=== PATIENT | female | born 1960 | race Caucasian/White ===

== ENCOUNTER → 2020-12-18 14:27 | Outpatient (BNVA) | payer OTHER, SELFPAY | PROVIDERS: Family Provider Nurse Practitioner; PCP Nurse Practitioner; Referring Provider Nurse Practitioner; Visit Provider Nurse Practitioner Family | DX: N39.46 Mixed incontinence (principal) | CPT/HCPCS: 81003 ==

== ENCOUNTER 2021-05-03 07:52 | Outpatient (CLI) | payer OTHER, SELFPAY ==
--- NOTE | 2021-05-03 08:04 | MM_ITS ---
WS: [id number] BILATERAL SCREENING DIGITAL MAMMOGRAM WITH CAD HISTORY: SCREENING COMPARISON: 11/20/2018 and 05/03/2016 Bilateral CC and MLO views submitted. Computer aided detection analyzed. Breast composition: There are scattered areas of fibroglandular density. No suspicious masses, microc alcifications or architectural distortion. Long-term stability of a nodule in the central mid RIGHT b reast. There is an additional postbiopsy clip in the upper outer quadrant of the LEFT breast which guerrero s been present for multiple prior years. No adjacent calcification or mass. MM/[place] [id number] IMPRESSION: BI-RADS: 2-Benign FOLLOW UP: 1 Year Follow-up
== END 2021-05-03 07:53 | disposition home or self-care (01) ==
LOC: RADSHAW 07:57
PROVIDERS: PCP Nurse Practitioner; Visit Provider Nurse Practitioner
DX: Z12.31 Encounter for screening mammogram for malignant neoplasm of breast (principal)
CPT/HCPCS: 77067

== ENCOUNTER 2021-09-28 09:07 | Emergency (ER) | payer OTHER, SELFPAY ==
[2021-09-28 09:13] VITALS: BP 144/83; PULSE 74; RESP 14; TEMP 36.5; BMI 32.5
--- NOTE | 2021-09-28 09:20 | ED_ITS ---
HPI - Dizziness General: Chief Complaint: Dizziness Stated Complaint: Dizzy Time Seen by Provider: 09/28/21 09:14 History of Present Illness: HPI Narrative: Ms. Bobby is a 61-year-old lady with history of hypertension and asthma who presents to the emergency department due to concern of her episodic fogginess. She reports onset of symptoms without known specific provoking factor approximately 2 weeks ago. Since that time she has had a number of episodes which do not occur daily. She describes sudden onset without specific known provoking factors including position change or other known factors of a foggy feeling in her head. At times she describes this as dizziness or spinning sensation though other times more of a presyncopal. She denies associated headache or other focal neurologic difficulties with these. [facility]. Episodes typically last 20 minutes or so. When present intensity symptoms is moderate. No other specific changes in health, exacerbating, or alleviating factors identified. Onset (ago): week(s) Timing: intermittent Severity: moderate Description: other History of similar symptoms: No Associated symptoms: Reports no associated symptoms Associated neuro symptoms: Reports no associated symptoms Review of Systems General: Reports: 10 or more systems reviewed and unremarkable except in HPI and below PFSH ED PFSH: Medical History Mixed stress and urge urinary incontinence Surgical History History of delivery Family History Father , AT 55 Cancer COLOC Mother Heart disease Social History Smoking and tobacco status: never smoked Alcohol intake: never Marital status: / Current occupational status: employed History of recent travel: No Physical Exam Const: COMMON NORMALS: patient oriented x3 and alert GENERAL APPEARANCE: cooperative and well developed HENMT: COMMON NORMALS: normocephalic, atraumatic, moist oral mucous membranes and oropharynx normal HEAD & SCALP: normocephalic and atraumatic Eye: COMMON NORMALS: conjunctivae normal CONJUNCTIVA: Yes conjunctivae normal SCLERA: sclerae normal Neck/C-Spine: COMMON NORMALS: supple GENERAL: Yes trachea midline Resp: COMMON NORMALS: normal respiratory effort and clear to auscultation bilaterally EFFORT & INSPECTION: Yes able to speak in complete sentences AUSCULTATION: clear to auscultation bilaterally Cardio: COMMON NORMALS: regular rate and regular rhythm RATE: regular rate RHYTHM: regular rhythm GI: COMMON NORMALS: Soft to palpation PALPATION: Yes Soft to palpation and No Tenderness to palpation present (GI) PERCUSSION: normal to percussion Extremity: GENERAL: Yes normal exam except as noted and No edema Neuro: COMMON NORMALS: patient oriented x3, CN's II-XII intact bilaterally, moves all extremities, no focal motor deficits, no sensory deficits noted and gait normal SENSORIUM/ORIENTATION: Yes alert and No Orientation impaired Psych: COMMON NORMALS: mental status grossly normal and Normal thought process present THOUGHT PROCESS: Normal thought process present Course ED course: - Patient was seen and evaluated by me at bedside - Patient placed on cardiac monitors, IV access obtained - Initial evaluation notable for exam as above. No neurologic deficits or elicitable neurologic deficits appreciated. - Labs personally interpreted by me. EKG showing sinus rhythm with nonspecific ST segment abnormalities, no STEMI. - Labs notable for no significant hematologic or metabolic abnormalities to explain patient's symptoms. Initial and delta troponin negative. No evidence of urinary tract infection. - Imaging notable for negative head CT. CTA without significant disease. - Upon serial reexamination after treatment the patient was similar without recurrence of episodes - Based on patient history, evaluation, and testing as interpreted the most likely cause of the patient's condition is unclear episodic lightheadedness/dizziness. - The results of ED evaluation were discussed with the patient including prescriptions and/or symptomatic cares (if applicable) including appropriate and responsible use, followup plan, and return precautions. The patient verbalized understanding and felt safe for discharge. - Patient discharged in satisfactory condition. Note: Click bubbles or prepopulated bowman in note writing are used for assistance with data collection and billing and are inherently more limited than narrative and other text portions of this note. Please use narrative for additional cli nical history and defer to narrative/free test for any case of contradictory information. If information appears in only free text or click bubble it should be considered present or absent as reported. Please contact note insurance writer for clarifications of clinical information or contradictory information. MDM is a brief summary, contradictory or erroneous seeming information should be clarified and full note should be reviewed. Vital Signs: Vital signs: Vital Signs Temperature 97.7 F 09/28/21 09:13 Pulse Rate 70 09/28/21 12:35 Respiratory Rate 18 09/28/21 12:35 Blood Pressure 144/83 09/28/21 09:13 MDM - Dizziness Medical Decision Making 61-year-old lady with episodic lightheadedness presenting to the emergency department. Negative ED evaluation. Satisfactory for outpatient management. Medical Records I reviewed the patient's medical records. Lab Data I reviewed the patient's lab results. : 09/28/21 10:00 09/28/21 10:[address] 09/28/21 09:34 IMPRESSION: No acute intracranial abnormality. Head/Neck CTA 09/28/21 10:52 IMPRESSION: No large vessel stenosis or occlusion. IMPRESSION: No stenosis or occlusion. REFERENCES: NASCET CRITERIA. The degree of internal carotid artery stenosis is based on NASCET criteria. Normal is no stenosis. Mild is less than 50% stenosis. Moderate is 50-69% stenosis. Severe is 70% to 99% stenosis. Total occlusion is no detectable patent lumen. Laboratory Results WBC 8.0 10^3/uL (4.0-10.0) 09/28/21 10:00 RBC 4.23 10^6/uL (4.1-5.3) 09/28/21 10:00 Hgb 13.4 g/dL (11.5-15.3) 09/28/21 10:00 Hct 39.9 % (37.0-47.0) 09/28/21 10:00 MCV 94.3 fl (81-99) 09/28/21 10:00 MCH 31.7 pg (28.0-34.0) 09/28/21 10:00 MCHC 33.6 g/dL (30.0-36.0) 09/28/21 10:00 RDW 11.6 % (12.1-15.1) L 09/28/21 10:00 Plt Count 318 10^3/cmm (130-400) 09/28/21 10:00 MPV 9.4 fL (7.4-10.4) 09/28/21 10:00 Neut % (Auto) 52.7 % 09/28/21 10:00 Lymph % (Auto) 38.7 % 09/28/21 10:00 [place] % (Auto) 6.5 % 09/28/21 10:00 Eos % (Auto) 1.3 % 09/28/21 10:00 Baso % (Auto) 0.5 % 09/28/21 10:00 Neut # (Auto) 4.19 10^3/uL (1.8-7.7) 09/28/21 10:00 Lymph # (Auto) 3.1 10^3/uL (0.8-4.8) 09/28/21 10:00 [place] # (Auto) 0.5 10^3/uL (0.2-0.9) 09/28/21 10:00 Eos # (Auto) 0.1 10^3/uL (0.0-0.8) 09/28/21 10:00 Baso # (Auto) 0.0 10^3/uL (0.0-0.1) 09/28/21 10:00 Nucleated RBC % (auto) 0 % 09/28/21 10:00 Nucleated RBCs # 0.0 /100WBC 09/28/21 10:00 Sodium 138 mmol/L (136-145) 09/28/21 10:00 Potassium 3.8 mmol/L (3.5-5.1) 09/28/21 10:00 Chloride 102 mmol/L (98-107) 09/28/21 10:00 Carbon Dioxide 28 mmol/L (22-29) 09/28/21 10:00 Anion Gap 11.8 (5-19) 09/28/21 10:00 BUN 10 mg/dL (8-23) 09/28/21 10:00 Creatinine 0.7 mg/dL (0.5-0.9) 09/28/21 10:00 GFR Calculation 84.5 mL/min (90-130) L 09/28/21 10:00 Glucose 93 mg/dL (65-115) 09/28/21 10:00 Calculated Osmolality 285 mOsm/kg (285-295) 09/28/21 10:00 Calcium 9.3 mg/dL (8.5-10.5) 09/28/21 10:00 Total Bilirubin 0.6 mg/dL (0.15-1.2) 09/28/21 10:00 AST 15 U/L (0-32) 09/28/21 10:00 ALT 14 U/L (0-33) 09/28/21 10:00 Alkaline Phosphatase 87 IU/L (35-105) 09/28/21 10:00 Troponin T Baseline 6 ng/L (0-10) 09/28/21 10:00 Troponin T 120 Minute 6.00 ng/L (0-10) 09/28/21 12:10 Delta Troponin T 0 ABS# (0-10) 09/28/21 12:10 Total Protein 7.1 g/dL (6.6-8.7) 09/28/21 10:00 Albumin 4.3 g/dL (3.5-5.2) 09/28/21 10:00 Globulin 2.8 g/dL (1.3-4.6) 09/28/21 10:00 TSH 0.96 uIU/mL (0.27-4.20) 09/28/21 10:00 Urine Color Yellow (Yellow) 09/28/21 10:45 Urine Appearance Clear (CLEAR) 09/28/21 10:45 Urine pH 7 (5-7) 09/28/21 10:45 Ur Specific [place] 1.005 (1.005-1.030) 09/28/21 10:45 Urine Protein Neg (Negative) 09/28/21 10:45 Urine Glucose (UA) Norm (Normal) 09/28/21 10:45 Urine Ketones Negative (Negative) 09/28/21 10:45 Urine Blood Neg (Negative) 09/28/21 10:45 Urine Nitrate Negative (Negative) 09/28/21 10:45 Urine Bilirubin Neg (Negative) 09/28/21 10:45 Urine Urobilinogen Norm mg/dL (Negative) 09/28/21 10:45 Ur Leukocyte Esterase 1+ (Negative) H 09/28/21 10:45 Urine RBC None /hpf (0-2) 09/28/21 10:45 Urine WBC None /hpf (0-5) 09/28/21 10:45 Ur Squamous Epith Cells 0-4 /hpf (0-5) H 09/28/21 10:45 Amorphous Sediment Not Reportable 09/28/21 10:45 Urine Bacteria None /hpf (NONE) 09/28/21 10:45 Discharge Plan Discharge Patient Disposition: Home Clinical Impression: Episodic lightheadedness Condition: Stable Prescriptions: No Action lisinopril 20 mg tablet 10 mg PO QAM 0RF multivitamin Tablet 1 tab PO QAM 0RF omeprazole 40 mg capsule,delayed release(DR/EC) 40 mg PO QAM 0RF albuterol sulfate 90 mcg/actuation HFA aerosol inhaler 2 puff inhalation QID PRN (Reason: Shortness Of Breath) 0RF cholecalciferol (vitamin D3) 25 mcg (1,000 unit) capsule 25 mcg PO QAM 0RF guaifenesin 400 mg tablet 400 mg PO Q4H PRN (Reason: Congestion) 0RF montelukast 10 mg tablet 10 mg PO QPM 0RF sertraline 50 mg tablet 25 mg PO QAM 0RF solifenacin 10 mg tablet 10 mg PO QAM 0RF trazodone 100 mg tablet 50 mg PO BEDTIME 0RF Discharge Orders: Discharge ED (Routine); Ordered 09/28/21 Ordered By: Kishan Gonsalez Referrals: Adilene Griffin FNP [Primary Care Provider] - Discharge Diet: Usual diet Discharge Activity: Increase activity as tolerated Patient Instructions: Lightheadedness (ED) Activity Restrictions/Additional Instructions: Thank you for visiting the emergency department. You were seen and evaluated for episodic abnormal feeling. The exact cause of your symptoms is unclear as no abnormality was identified on laboratory or imaging studies to explain symptoms. Please follow-up with your primary care provider. Please return to the emergency department for any new neurologic symptoms or anything else that you are concerned about a feel needs emergency department evaluation. Coding Level of Care Code ED Bond Clerk for Naomi Fwd Exam Comprehensive
--- NOTE | 2021-09-28 09:34 | CTR_ITS ---
PROCEDURE INFORMATION: Exam: CT Head Without Contrast Exam date and time: 09/28/2021 10:10 AM Age: 61 years old Clinical indication: Dizziness; Additional info: Dizzy episodic TECHNIQUE: Imaging protocol: Computed tomography of the head without contrast. Total images: 1 Radiation optimization: All CT scans at this facility use at least one of these dose optimization techniques: automated exposure control; mA and/or kV adjustment per patient size (includes targeted exams where dose is matched to clinical indication); or iterative reconstruction. COMPARISON: CT Cervical Spine wo* [id number] 03/13/2015 11:42 PM RADIATION DOSE METRICS: Total DLP (mGy-cm): 849.96 FINDINGS: Brain: Global brain atrophy and chronic white matter ischemic changes are present. Cerebral ventricles: Ventricles are appropriate in size for degree of atrophy. Paranasal sinuses: Visualized sinuses are unremarkable. No fluid levels. Mastoid air cells: Visualized mastoid air cells are well aerated. Bones/joints: Unremarkable. No acute fracture. Soft tissues: Unremarkable. CT/CT head wo con* [id number] IMPRESSION: No acute intracranial abnormality.
--- NOTE | 2021-09-28 09:35 | ECG_ITS ---
[facility] Test Date: 2021-09-28 Pat Name: Kendra Bobby Department: Room: Gender: Female Lighter: : 1960 Requested By: Kishan Gonsalez Order Number: [id number] Beba MD: Nimo Kirk M.D. Measurements Intervals [place] Rate: 82 P: 59 ND: 181 QRS: -18 QRSD: 90 T: 162 QT: 366 QTc: 428 Interpretive Statements SINUS RHYTHM LOW QRS VOLTAGE IN PRECORDIAL LEADS [QRS DEFLECTION < 1.0 mV IN CHEST LEADS] POSSIBLE ANTERIOR MYOCARDIAL INFARCTION , OF INDETERMINATE AGE [30 ms Q WAVE IN V3/V4, OR R < 0.2 mV IN V4] MODERATE T-WAVE ABNORMALITY, CONSIDER LATERAL ISCHEMIA [-0.1+ mV T-WAVE IN I/aVL/V5/V6] Compared to ECG 03/02/2018 14:36:38 Low QRS voltage now present Myocardial infarct finding still present T-wave abnormality still present Possible ischemia still present Electronically Signed On 09-28-2021 22:52:01 CDT by Nimo Kirk M.D. [id number]
[2021-09-28 10:07] LABS: Basophils % 0.5 %; Eosinophils # 0.1 10^3/uL (0.0-0.8); Eosinophils % 1.3 %; Hematocrit 39.9 % (37.0-47.0); Hemoglobin 13.4 g/dL (11.5-15.3); Lymphocytes # 3.1 10^3/uL (0.8-4.8); Lymphocytes % 38.7 %; Mean Corpuscular HGB Conc 33.6 g/dL (30.0-36.0); Mean Corpuscular Hemoglobin 31.7 pg (28.0-34.0); Mean Corpuscular Volume 94.3 fl (81-99); Mean Platelet Volume 9.4 fL (7.4-10.4); Monocytes # 0.5 10^3/uL (0.2-0.9); Monocytes % 6.5 %; Neutrophils # 4.19 10^3/uL (1.8-7.7); Neutrophils % 52.7 %; Nucleated Red Blood Cells % 0 %; Platelet Count 318 10^3/cmm (130-400); Red Blood Count 4.23 10^6/uL (4.1-5.3); Red Cell Distribution Width 11.6 % (12.1-15.1)
[2021-09-28 10:26] LABS: Troponin(5th) Baseline 6 ng/L (0-10)
[2021-09-28 10:34] LABS: Alanine Aminotransferase 14 U/L (0-33); Albumin Level 4.3 g/dL (3.5-5.2); Alkaline Phosphatase 87 IU/L (35-105); Anion Gap 11.8 (5-19); Aspartate Amino Transferase 15 U/L (0-32); Blood Urea Nitrogen 10 mg/dL (8-23); Calcium 9.3 mg/dL (8.5-10.5); Carbon Dioxide 28 mmol/L (22-29); Chloride 102 mmol/L (98-107); Globulin 2.8 g/dL (1.3-4.6); Glomerular Filtration Rate 84.5 mL/min (90-130); Glucose 93 mg/dL (65-115); Osmolality Calculated 285 mOsm/kg (285-295); Potassium 3.8 mmol/L (3.5-5.1); Sodium 138 mmol/L (136-145); Thyroid Stimulating Hormone 0.96 uIU/mL (0.27-4.20); Total Bilirubin 0.6 mg/dL (0.15-1.2); Total Protein 7.1 g/dL (6.6-8.7)
--- NOTE | 2021-09-28 10:52 | CTR_ITS ---
PROCEDURE INFORMATION: Exam: CTA Head With Contrast, Arteriography Exam date and time: 09/28/2021 11:07 AM Age: 61 years old Clinical indication: Dizziness and giddiness; Additional info: Intermittent dizzy episodes TECHNIQUE: Imaging protocol: Computed tomographic angiography of the head with contrast. Exam focused on the arteries. 3D rendering (Not supervised by radiologist): MIP and/or 3D reconstructed images were created by the technologist. Total images: 3 Radiation optimization: All CT scans at this facility use at least one of these dose optimization techniques: automated exposure control; mA and/or kV adjustment per patient size (includes targeted exams where dose is matched to clinical indication); or iterative reconstruction. Contrast material: OMNIPAQUE 350; Contrast volume: 85 ml; Contrast route: INTRAVENOUS (IV); COMPARISON: CT head wo con* [id number] 09/28/2021 10:10 AM RADIATION DOSE METRICS: Total DLP (mGy-cm): 1776.38 FINDINGS: ANTERIOR CIRCULATION: Right internal carotid artery: Unremarkable. Intracranial segment is patent with no significant stenosis. No aneurysm. Right middle cerebral artery: Unremarkable. No occlusion or significant stenosis. No aneurysm. Right anterior cerebral artery: Unremarkable. No occlusion or significant stenosis. No aneurysm. Left internal carotid artery: Unremarkable. Intracranial segment is patent with no significant stenosis. No aneurysm. Left middle cerebral artery: Unremarkable. No occlusion or significant stenosis. No aneurysm. Left anterior cerebral artery: Unremarkable. No occlusion or significant stenosis. No aneurysm. POSTERIOR CIRCULATION: Right vertebral artery: Unremarkable. No occlusion or significant stenosis. No aneurysm. Left vertebral artery: Unremarkable. No occlusion or significant stenosis. No aneurysm. Basilar artery: Unremarkable. No occlusion or significant stenosis. No aneurysm. Right posterior cerebral artery: Unremarkable. No occlusion or significant stenosis. No aneurysm. Left posterior cerebral artery: Unremarkable. No occlusion or significant stenosis. No aneurysm. Brain: No definite mass, mass effect, or midline shift. Cerebral ventricles: No ventriculomegaly. Bones/joints: Prominent atlantodental degenerative changes. Exuberant anterior osteophyte formation C4-6. Soft tissues: Unremarkable. PROCEDURE INFORMATION: Exam: CTA Neck With Contrast Exam date and time: 09/28/2021 11:07 AM Age: 61 years old Clinical indication: Dizziness and giddiness; Additional info: Intermittent dizzy episodes TECHNIQUE: Imaging protocol: Computed tomographic angiography of the neck with contrast. 3D rendering (Not supervised by radiologist): MIP and/or 3D reconstructed images were created by the technologist. Radiation optimization: All CT scans at this facility use at least one of these dose optimization techniques: automated exposure control; mA and/or kV adjustment per patient size (includes targeted exams where dose is matched to clinical indication); or iterative reconstruction. Contrast material: OMNIPAQUE 350; Contrast volume: 85 ml; Contrast route: INTRAVENOUS (IV); COMPARISON: CT Cervical Spine wo* [id number] 03/13/2015 11:42 PM RADIATION DOSE METRICS: Total DLP (mGy-cm): 1776.38 FINDINGS: Right common carotid artery: No stenosis. No dissection or occlusion. Right internal carotid artery: No stenosis of the extracranial segment. No dissection or occlusion. Right external carotid artery: No occlusion or stenosis of the origin. Left common carotid artery: No stenosis. No dissection or occlusion. Left internal carotid artery: No stenosis of the extracranial segment. No dissection or occlusion. Left external carotid artery: No occlusion or stenosis of the origin. Right vertebral artery: No stenosis. No dissection or occlusion. Left vertebral artery: No stenosis. No dissection or occlusion. Soft tissues: Normal. No significant soft tissue swelling. Bones/joints: No acute fracture. CT/CT angio headneck* [id number] IMPRESSION: No large vessel stenosis or occlusion. IMPRESSION: No stenosis or occlusion. REFERENCES: NASCET CRITERIA. The degree of internal carotid artery stenosis is based on NASCET criteria. Normal is no stenosis. Mild is less than 50% stenosis. Moderate is 50-69% stenosis. Severe is 70% to 99% stenosis. Total occlusion is no detectable patent lumen.
[2021-09-28] MEDS: iohexol 350 mg/mL 100 mL Btl IV (11:10)
[2021-09-28 11:14] LABS: Add Urine Culture? No; Bilirubin Urine Neg (Negative); Blood Urine Neg (Negative); Glucose Urine UA Norm (Normal); Ketones Urine Negative (Negative); Leukocyte Esterase Urine 1+ (Negative); Nitrate Urine Negative (Negative); Protein Urine Neg (Negative); Specific Gravity, Urine 1.005 (1.005-1.030); Squamous Epithelial Cell Urine 0-4 /hpf (0-5); Urine Appearance Clear (CLEAR); Urine Color Yellow (Yellow); Urobilinogen Urine Norm (Negative); pH Urine 7 (5-7)
[2021-09-28 12:35] VITALS: PULSE 70; RESP 18
[2021-09-28 12:47] LABS: Troponin 5 2HR Delta 0 ABS# (0-10)
== END 2021-09-28 12:36 | disposition home or self-care (01) ==
PROVIDERS: Emergency Provider Emergency Medicine; PCP Nurse Practitioner
DX: R42 Dizziness and giddiness (principal)
CPT/HCPCS: 36415; 70450; 70496; 70498; 80053; 81001; 84443; 84484; 85025; 93005; 99284; Q9967

== ENCOUNTER 2022-09-09 08:32 | Outpatient (CLI) | payer OTHER, SELFPAY ==
--- NOTE | 2022-09-09 08:43 | MM_ITS ---
WS: [id number] BILATERAL SCREENING DIGITAL TOMOSYNTHESIS MAMMOGRAM WITH CAD HISTORY: SCREENING COMPARISON: 05/03/2021 and 11/20/2018 Bilateral CC and MLO views with tomosynthesis and synthetic mammography submitted. Computer aided det ection analyzed. Breast composition: There are scattered areas of fibroglandular density. No suspicious masses, microc alcifications or architectural distortion. Prior biopsy clip upper outer LEFT breast at a mid depth. MM/[place] [id number] IMPRESSION: BI-RADS: 2-Benign FOLLOW UP: 1 Year Follow-up
== END 2022-09-09 08:33 | disposition home or self-care (01) ==
PROVIDERS: PCP Nurse Practitioner; Visit Provider Nurse Practitioner
DX: Z12.31 Encounter for screening mammogram for malignant neoplasm of breast (principal)
CPT/HCPCS: 77063; 77067

== ENCOUNTER 2023-12-19 12:40 | Outpatient (CLI) | payer OTHER, SELFPAY ==
--- NOTE | 2023-12-19 13:00 | MM_ITS ---
WS: [id number] BILATERAL 3D TOMOSYNTHESIS DIGITAL SCREENING MAMMOGRAPHY WITH CAD CLINICAL INFORMATION: SCREEN HISTORY: Screening mammogram. No current complaints. COMPARISON: 2022 TECHNIQUE: Bilateral CC and MLO views. FINDINGS: Scattered fibroglandular densities bilaterally. No suspicious focal mass, asymmetry, calcifications, or architectural distortion. No evidence of malignancy. LEFT breast biopsy clip. MM/MM scr BI tomosynthesis [id number] IMPRESSION: DENSITY: There are scattered areas of fibroglandular density. BI-RADS: 2 - Benign. FOLLOW UP: 1 Year Follow-up Recommend return to annual screening mammography.
--- NOTE | 2023-12-19 13:35 | XR_ITS ---
WS: [id number] DEXA (DUAL ENERGY X-RAY ABSORPTIOMETRY) Bone mineral density was performed using a [employer] machine. HISTORY: POSTMENOPAUSAL SCREENING COMPARISON: None. Lumbar spine BMD (L1-L4): 1.008 g/cm2 T score: -1.4 Z score: -0.2 Total hip BMD: Left: 0.817 g/cm2. T score: -1.5 Z score: -0.6 Right: 0.799 g/cm2. T score: -1.7 Z score: -0.7 10 year probability of a major osteoporotic fracture is 15.0%. XR/XR DEXA axial skeleton* [id number] IMPRESSION: OSTEOPENIA based upon the WHO classification for females.
== END 2023-12-19 12:41 | disposition home or self-care (01) ==
LOC: RAD 12:41
PROVIDERS: PCP Nurse Practitioner; Visit Provider Nurse Practitioner
DX: Z12.31 Encounter for screening mammogram for malignant neoplasm of breast (principal); Z13.820 Encounter for screening for osteoporosis; M85.80 Other specified disorders of bone density and structure, unspecified site; R92.323 Mammographic fibroglandular density, bilateral breasts
CPT/HCPCS: 77063; 77067; 77080

== ENCOUNTER 2024-12-20 08:29 | Outpatient (CLI) | payer OTHER, SELFPAY ==
--- NOTE | 2024-12-20 08:41 | MM_ITS ---
WS: [id number] BILATERAL SCREENING DIGITAL TOMOSYNTHESIS MAMMOGRAM WITH CAD HISTORY: ENCOUNTER FOR SCREENING COMPARISON: 12/19/2023, 09/09/2022, 05/03/2021 Bilateral CC and MLO views with tomosynthesis and synthetic mammography submitted. Computer aided detection analyzed. Breast composition: There are scattered areas of fibroglandular density. No suspicious masses, microcalcifications or architectural distortion. Biopsy clip in the upper outer quadrant LEFT breast. MM/MM scr BI tomosynthesis [id number] IMPRESSION: BI-RADS: 2 - Benign. FOLLOW UP: 1 Year Follow-up
== END 2024-12-20 08:30 | disposition home or self-care (01) ==
LOC: RAD 08:30
PROVIDERS: Visit Provider Nurse Practitioner
DX: Z12.31 Encounter for screening mammogram for malignant neoplasm of breast (principal)
CPT/HCPCS: 77063; 77067

== ENCOUNTER → 2024-12-21 13:14 | Outpatient (BNVA) | payer OTHER, SELFPAY | PROVIDERS: Referring Provider Nurse Practitioner; Visit Provider Surgery | DX: Z12.11 Encounter for screening for malignant neoplasm of colon (principal) | CPT/HCPCS: 99203 ==